=== PATIENT | male | born 1995 | race Caucasian/White ===

== ENCOUNTER 2018-09-18 00:18 | Inpatient (IN) | payer MEDICAID ==
[~2018-09-18] VITALS: Ht 182.9 cm; Wt 76.5 kg
[2018-09-18] MEDS ORDERED: NALOXONE 1 MG/ML, 2ML ONE (00:22)
[2018-09-18] MEDS ORDERED: ONDANSETRON 2MG/ML, 2ML ONE ×2 (00:26→00:27)
[2018-09-18] MEDS ORDERED: NALOXONE 1 MG/ML, 2ML IVPush ONE ×2 (00:30→02:00)
[2018-09-18] MEDS ORDERED: ONDANSETRON 2MG/ML, 2ML IVPush ONE (00:30)
[2018-09-18 01:14] LABS: BASOPHILS # (AUTO) 0.03 x10^3/uL (0-0.1); BASOPHILS % (AUTO) 0 % (0-1); EOSINOPHILS # (AUTO) 0.29 x10^3/uL (0-0.4); EOSINOPHILS % (AUTO) 2 % (1-7); LYMPHOCYTES % (AUTO) 28 % (22-44); MD NO; MEAN CORPUSCULAR HEMOGLOBIN 30.6 pg (27.5-34.5); MEAN CORPUSCULAR HGB CONC 33.8 g/dL (33.2-36.2); MEAN CORPUSCULAR VOLUME 90.7 fL (81-97); MEAN PLATELET VOLUME 7.8 fL (7.4-10.4); MONOCYTES # (AUTO) 0.42 x10^3/uL (0.2-0.8); MONOCYTES % (AUTO) 3 % (2-9); NEUTROPHILS # (AUTO) 8.98 x10^3/uL (1.8-6.8); NEUTROPHILS % (AUTO) 67 % (42-75); PLATELET COUNT 292 x10^3/uL (130-400); RED BLOOD COUNT 5.65 x10^6/uL (4.38-5.82); RED CELL DISTRIBUTION WIDTH 13.3 % (9.4-14.8)
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
[2018-09-18 01:16] LABS: ALANINE AMINOTRANSFERASE 26 U/L (12-78); ALBUMIN 3.5 g/dL (3.4-5.0); ANION GAP 10 mmol/L (5-15); CALCIUM 9.4 mg/dL (8.5-10.1); CHLORIDE 105 mmol/L (98-107); CREATININE 1.14 mg/dL (0.7-1.3)
[2018-09-18 01:19] LABS: ALKALINE PHOSPHATASE 71 U/L (45-117); BILIRUBIN,TOTAL 0.3 mg/dL (0.2-1.0); TOTAL PROTEIN 6.6 g/dL (6.4-8.2)
--- NOTE | 2018-09-18 01:30 | NUR ---
OXYGEN IS DROPPING WHEN PT IS SLEEPING OXYGEN IS 12 LITERS NOW
[2018-09-18] MEDS ORDERED: NALOXONE 4 MG in SODIUM CHLORIDE 0.9% 1,000 ML IV SCH ×3 (02:00→09:00)
--- NOTE | 2018-09-18 02:39 | NUR ---
NARCAN GTT WAS STARTED PT WILL BE ADMITTED TO UNIT
[2018-09-18] MEDS ORDERED: PROMETHAZINE 25 MG/ML, 1ML IM PRN (03:30)
[2018-09-18] MEDS ORDERED: ENALAPRILAT 1.25 MG/ML, 2ML IVPush PRN (03:30)
[2018-09-18] MEDS ORDERED: KETOROLAC 30 MG/1 ML IV PRN (03:30)
[2018-09-18] MEDS ORDERED: ACETAMINOPHEN 325 MG TABLET PO PRN (03:30)
[2018-09-18] MEDS ORDERED: ONDANSETRON 2MG/ML, 2ML IVPush PRN (03:30)
[2018-09-18 03:39] LABS: HEMOGLOBIN A1C 5.1 % (4.2-6.3)
--- NOTE | 2018-09-18 04:21 | NUR ---
pt is in hospital bed pt was able to stand up for self transfer to bed vss
[2018-09-18] MEDS ORDERED: ENOXAPARIN 40 MG/0.4 ML ONE (04:57)
[2018-09-18] MEDS: ENOXAPARIN 40 MG/0.4 ML SQ SCH (05:01)
--- NOTE | 2018-09-18 05:31 | NUR ---
PT IS ABLE TO AWAKE VSS STABLE OXYGEN DEMAND IS 5 LITERS OF OXYMASK NOW
--- NOTE | 2018-09-18 07:04 | NUR ---
GIVEN REPORT TO ADILSON BROOKS PT WILL BE TRNASFERRED
[2018-09-18 12:26] LABS: AMPHETAMINE SCREEN, URINE Positive (Negative); COCAINE SCREEN, URINE Negative (Negative)
[2018-09-18 12:33] LABS: BARBITURATE SCREEN, URINE Negative (Negative); BENZODIAZEPINE SCREEN, URINE Negative (Negative); CANNABINOID SCREEN, URINE Negative (Negative); METHADONE SCREEN, URINE Negative (Negative); OPIATE SCREEN, URINE Positive (Negative)
[2018-09-19 04:33] VITALS: BP 132/75
[2018-09-19 04:38] LABS: BASOPHILS # (AUTO) 0.05 x10^3/uL (0-0.1); BASOPHILS % (AUTO) 0 % (0-1); EOSINOPHILS # (AUTO) 0.36 x10^3/uL (0-0.4); EOSINOPHILS % (AUTO) 2 % (1-7); LYMPHOCYTES # (AUTO) 2.67 x10^3/uL (1-3.4); LYMPHOCYTES % (AUTO) 18 % (22-44); MD NO; MEAN CORPUSCULAR HGB CONC 32.9 g/dL (33.2-36.2); MEAN CORPUSCULAR VOLUME 91.1 fL (81-97); MEAN PLATELET VOLUME 7.7 fL (7.4-10.4); MONOCYTES # (AUTO) 0.57 x10^3/uL (0.2-0.8); MONOCYTES % (AUTO) 4 % (2-9); NEUTROPHILS # (AUTO) 11.54 x10^3/uL (1.8-6.8); NEUTROPHILS % (AUTO) 76 % (42-75); PLATELET COUNT 247 x10^3/uL (130-400); RED BLOOD COUNT 5.06 x10^6/uL (4.38-5.82); RED CELL DISTRIBUTION WIDTH 13.2 % (9.4-14.8)
[2018-09-19 04:48] LABS: CHLORIDE 110 mmol/L (98-107)
[2018-09-19 04:57] LABS: ALANINE AMINOTRANSFERASE 19 U/L (12-78); ALKALINE PHOSPHATASE 57 U/L (45-117); ANION GAP 4 mmol/L (5-15); BILIRUBIN,TOTAL 0.7 mg/dL (0.2-1.0); CALCIUM 9.6 mg/dL (8.5-10.1); CREATININE 0.66 mg/dL (0.7-1.3)
[2018-09-19] MEDS: ENOXAPARIN 40 MG/0.4 ML SQ SCH (05:11)
== END 2018-09-19 11:05 | disposition left against medical advice (07) | DRG 917 ==
LOC: EDBD 00:18 → ED 02:01 → MERGE 02:05 → EDIP 02:05 → ICU 07:15
PROVIDERS: ADMIT Family Medicine; ATTEND Internal Medicine
DX: T40.1X1A Poisoning by heroin, accidental (unintentional), initial encounter (principal); J96.01 Acute respiratory failure with hypoxia; J69.0 Pneumonitis due to inhalation of food and vomit; R73.9 Hyperglycemia, unspecified; Z53.21 Procedure and treatment not carried out due to patient leaving prior to being seen by health care provider; F11.10 Opioid abuse, uncomplicated; T43.621A Poisoning by amphetamines, accidental (unintentional), initial encounter; Y92.89 Other specified places as the place of occurrence of the external cause; Z72.0 Tobacco use; Z79.899 Other long term (current) drug therapy
CPT/HCPCS: 36415; 71045; 80053; 80307; 83036; 85025; 87081; 93005; 96372; 96374; 96375; 96376; G0378; J1650; J2310; J2405; J7030

== ENCOUNTER 2018-11-07 00:04 | Emergency (ER) | payer MEDICAID ==
[~2018-11-07] VITALS: Ht 182.9 cm; Wt 78.5 kg
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
[2018-11-07] MEDS ORDERED: DIPH,PERTUSS(ACELL),TET VAC/PF 0.5 ML IM-VACC ONE ×2 (00:51→01:00)
[2018-11-07] MEDS ORDERED: LIDOCAINE-MPF 1%, 5ML ONE (00:51)
--- NOTE | 2018-11-07 00:57 | NUR ---
PT MEDICATED PER MAR
[2018-11-07] MEDS ORDERED: LIDOCAINE-MPF 1%, 5ML INFIL ONE (01:00)
[2018-11-07] MEDS ORDERED: BACITRACIN ZINC OINT 500U/GM, 0.9 GM ONE ×2 (01:47→01:48)
[2018-11-07 01:56] VITALS: BP 128/80
== END 2018-11-07 04:01 | disposition home or self-care (01) ==
LOC: ED 01:13
DX: S61.210A Laceration without foreign body of right index finger without damage to nail, initial encounter (principal); L73.9 Follicular disorder, unspecified; F17.200 Nicotine dependence, unspecified, uncomplicated; Z91.030 Bee allergy status; W25.XXXA Contact with sharp glass, initial encounter; Y93.89 Activity, other specified; Y92.89 Other specified places as the place of occurrence of the external cause; Y99.8 Other external cause status
CPT/HCPCS: 12041; 90471; 90715